=== PATIENT | female | born 1980 | race Caucasian/White ===

== ENCOUNTER 2021-08-06 17:38 | Emergency (ER) | payer MEDICAID ==
[~2021-08-06] VITALS: Ht 160 cm; Wt 60.0 kg
[2021-08-06] MEDS ORDERED: DIPH25CA83 PO (17:47)
[2021-08-06] MEDS ORDERED: FAMOTIDINE 20MG/2ML VIAL IV ONE (18:15)
[2021-08-06] MEDS ORDERED: DIPHENHYDRAMINE 50MG/ML VIAL IV ONE (18:15)
[2021-08-06] MEDS ORDERED: METHYLPREDNISOLONE SOD SUCC 125 MG/2 ML VIAL IV ONE (18:15)
[2021-08-06 20:00] VITALS: BP 134/70
[2021-08-06] MEDS ORDERED: P50 MT (21:06)
== END 2021-08-06 21:25 | disposition home or self-care (01) ==
LOC: ER 17:38
DX: T78.1XXA Other adverse food reactions, not elsewhere classified, initial encounter (principal); R21 Rash and other nonspecific skin eruption; L29.9 Pruritus, unspecified; X58.XXXA Exposure to other specified factors, initial encounter
CPT/HCPCS: 96374; 96375; 99284; J1200; J2930; J3490

== ENCOUNTER 2024-06-29 10:17 | Emergency (ER) | payer MEDICAID ==
[~2024-06-29] VITALS: Ht 160 cm; Wt 56.0 kg
[~2024-06-29 10:17] MED LIST: DIPH25CA83 PO; P50 MT
[2024-06-29 10:27] VITALS: O2SAT 100
[2024-06-29] MEDS ORDERED: LORA10CA MT (10:53)
[2024-06-29] MEDS ORDERED: EPIN0.3P3 IM (10:57)
[2024-06-29 12:06] VITALS: BP 120/68; PULSE 60; RESP 16; TEMP 36.89184; O2SAT 100
== END 2024-06-29 13:00 | disposition home or self-care (01) ==
LOC: ER 10:17
DX: L50.0 Allergic urticaria (principal); Z98.890 Other specified postprocedural states
CPT/HCPCS: 99282

== ENCOUNTER 2024-10-14 00:21 | Emergency (ER) | payer MEDICAID ==
[~2024-10-14] VITALS: Ht 154.9 cm; Wt 59.0 kg
[~2024-10-14 00:21] MED LIST changes: +EPIN0.3P3 IM; +LORA10CA MT
[2024-10-14 00:44] VITALS: O2SAT 100
[2024-10-14 01:07] LABS: BASOPHILS % 0.4 % (0.0-2.0); HEMATOCRIT. 34.2 % (36.0-48.0); HEMOGLOBIN. 10.9 g/dL (12.0-16.0); LYMPHOCYTES % 29.1 % (20.0-50.0); MEAN CORPUSCULAR VOLUME 84.3 fL (81.0-99.0); MEAN PLATELET VOLUME 7.7 fl (7.4-10.4); MONOCYTES % 6.3 % (2.0-8.0); NEUTROPHILS % 63.2 % (40.0-76.0); PLATELET 346 x1000/uL (130-400); RED BLOOD CELL COUNT 4.05 mill/uL (4.2-5.4); RED CELL DISTRIBUTION WIDTH 14.4 % (11.6-14.6); WHITE BLOOD COUNT 9.2 x1000/uL (4.5-11.0)
[2024-10-14 01:16] LABS: CHLORIDE 106 mEq/L (98-107); POTASSIUM 3.9 mEq/L (3.5-5.1); SODIUM 137 mEq/L (136-145)
[2024-10-14 01:17] LABS: CARBON DIOXIDE 26 mEq/L (21-32)
[2024-10-14 01:18] LABS: CALCIUM 8.9 mg/dL (8.7-10.4)
[2024-10-14 01:22] LABS: CREATININE 0.8 mg/dL (0.6-1.0); GLUCOSE 178 mg/dL (70-105); UREA NITROGEN BLOOD 14 mg/dL (9-23)
[2024-10-14 01:38] LABS: ETHANOL BLOOD < 10 mg/dL (<10)
[2024-10-14] MEDS: ONDANSETRON 4MG ODT PO ONE (01:50)
[2024-10-14 01:52] LABS: HCG SCREEN NEGATIVE
[2024-10-14 03:33] VITALS: BP 119/50; PULSE 66; RESP 16; TEMP 36.7; O2SAT 100
[2024-10-14] MEDS ORDERED: ACET-2708 MT (04:00)
[2024-10-14] MEDS ORDERED: ONDA4TAB50 MT (04:00)
[2024-10-14 04:22] VITALS: TEMP 98.1
[2024-10-14] MEDS: ACETAMINOPHEN 325MG TABLET PO ONE (04:22)
== END 2024-10-14 04:22 | disposition home or self-care (01) ==
LOC: ER 00:21
DX: S09.90XA Unspecified injury of head, initial encounter (principal); W22.03XA Walked into furniture, initial encounter; Z00.00 Encounter for general adult medical examination without abnormal findings; Z79.899 Other long term (current) drug therapy; Z98.51 Tubal ligation status; Z98.890 Other specified postprocedural states; X58.XXXA Exposure to other specified factors, initial encounter; Y93.89 Activity, other specified; Y92.89 Other specified places as the place of occurrence of the external cause; Y99.8 Other external cause status
CPT/HCPCS: 80048; 80320; 84703; 83880; 85025; 36415; 71045; 70450; 93005; 99285; Q0162; Z7610 ×2; G0480